=== PATIENT | female | born 1970 | race Caucasian/White ===

== ENCOUNTER 2023-03-14 14:40 | Emergency (ER) | payer MEDICAID ==
[~2023-03-14] VITALS: Ht 160 cm; Wt 45.4 kg
[2023-03-14] MEDS ORDERED: CEPH500T PO (16:25)
[2023-03-14 16:37] VITALS: BP 118/70; TEMP 97.9; O2SAT 100
== END 2023-03-14 16:39 | disposition home or self-care (01) ==
LOC: ER 14:40
DX: S60.562A Insect bite (nonvenomous) of left hand, initial encounter (principal); L03.114 Cellulitis of left upper limb; W57.XXXA Bitten or stung by nonvenomous insect and other nonvenomous arthropods, initial encounter; Y93.89 Activity, other specified; Y92.89 Other specified places as the place of occurrence of the external cause; Y99.8 Other external cause status
CPT/HCPCS: A4663